=== PATIENT | female | born 1990 | race Caucasian/White ===

== ENCOUNTER → 2022-08-03 11:57 | Outpatient (CLI) | payer OTHER, SELFPAY ==
[2022-08-03 15:11] LABS: Urine N gonorrhoeae NOT DETECTED
[2022-08-03 15:53] LABS: Urine Chlamydia NOT DETECTED
== END ==
PROVIDERS: Visit Provider Obstetrics & Gynecology
DX: Z34.81 Encounter for supervision of other normal pregnancy, first trimester (principal); Z3A.10 10 weeks gestation of pregnancy
CPT/HCPCS: 87491; 87591

== ENCOUNTER → 2022-08-03 12:19 | Outpatient (CLI) | payer OTHER, SELFPAY ==
[2022-08-03 14:07] LABS: Add Manual Diff / Slide Review NO; Basophils Absolute Auto 0 /uL (0-100); Basophils Percent Auto 0.3 % (0-2); Eosinophils Absolute Auto 100 /uL (0-450); Eosinophils Percent Auto 2.1 % (2-4); Hematocrit 36.1 % (36-46); Hemoglobin 12.6 g/dL (12.0-16.0); Lymphocytes Absolute Auto 1900 /uL (1100-4500); Lymphocytes Percent Auto 33.4 % (25-40); Mean Corpuscular HGB Conc 34.8 % (30-36); Mean Corpuscular Hemoglobin 31.1 PG (26-34); Mean Corpuscular Volume 89.5 fL (80-100); Monocytes Absolute Auto 400 /uL (0-900); Monocytes Percent Auto 6.1 % (3-14); Neutrophils Absolute Auto 3400 /uL (1500-7000); Neutrophils Percent Auto 58.1 % (50-75); Platelet Count 256 X10^3/uL (150-400); Red Blood Cell Count 4.04 X10^6/uL (4.0-5.2); Red Cell Distribution Width 12.8 % (11.6-14.8); White Blood Cell Count 5.8 X10^3/uL (4.5-11.0)
[2022-08-03 21:38] LABS: Hepatitis B Surface Antigen NEGATIVE s/c (NEGATIVE); Rubella Antibody IgG 25.4 IU/mL (>15)
[2022-08-03 21:59] LABS: HIV 1 & 2 Ab/Ag 4th Gen Combo NEGATIVE (NEGATIVE); Hep C Virus Ab w/Reflex Quant NEGATIVE s/c (NEGATIVE)
[2022-08-04 09:38] LABS: Varicella IgG Antibody 697 index (Immune >165)
[2022-08-05 11:09] LABS: RPR Screen Non Reactive (Non Reactive)
== END ==
PROVIDERS: Referring Provider Obstetrics & Gynecology; Visit Provider Obstetrics & Gynecology
DX: Z34.81 Encounter for supervision of other normal pregnancy, first trimester (principal); Z3A.10 10 weeks gestation of pregnancy
CPT/HCPCS: 36415; 80055; 86787; 86803; 86850; 86900; 86901; 87086; 87389; 87491; 87591

== ENCOUNTER → 2022-09-28 08:54 | Outpatient (CLI) | payer OTHER, SELFPAY ==
[2022-09-30 20:59] LABS: AFP, Serum 31.2 ng/mL (.); Estriol, Free 1.16 ng/mL (.); Inhibin A, Dimeric 142.41 pg/mL (.); Inhibin A, MoM 0.99 (.); Maternal Ethnicity Caucasian (.); Maternal Weight 169 lbs (.); Number of Fetuses No (.); OSBR Risk 1 IN 10000 (.); Results Report (.); Test Results *Screen Negative* (.); hCG, MoM 1.92 (.); hCG, Serum 50936 mIU/mL (.)
== END ==
PROVIDERS: Referring Provider Obstetrics & Gynecology; Visit Provider Obstetrics & Gynecology
DX: Z34.82 Encounter for supervision of other normal pregnancy, second trimester (principal); Z3A.18 18 weeks gestation of pregnancy
CPT/HCPCS: 36415; 82105; 82677; 84702; 86336

== ENCOUNTER → 2022-10-12 10:14 | Outpatient (CLI) | payer OTHER, SELFPAY ==
--- NOTE | 2022-10-12 10:15 | DI.US.S_ITS ---
PROCEDURE: US OB >= 14 WEEKS FETUS INDICATIONS: ANATOMY OUTSIDE/PRIOR DATING DATA: Last menstrual period (LMP): 05/23/2022. LMP-based estimated date of delivery (RIANNA): 02/27/2023. (Working RIANNA) First dating scan (date and location): 08/03/2022. Estimated date of delivery (RIANNA) from first dating scan: 02/24/2023. TECHNIQUE: Real-time scanning was performed of the fetus, with image documentation and biometric measurements. COMPARISON: [facility], , OB <= 14 WEEKS FETUS, 08/03/2022, 12:05. FINDINGS: General: A single living intrauterine gestation is present. Presentation: Transverse. Placenta: Placental position is anterior. No previa. The inferior edge of the placenta is 2.9 centimeters from the cervix. Amniotic fluid index: 15.8 cm, normal range is 5-24 cm. Single deepest vertical pocket is 5.8 cm. heart rate: 150 beats per minute. Maternal cervical canal: 4.7 cm long. Normal lower limit is 2.5 cm. biometrics: Biparietal diameter: 5.1 centimeters, 21 weeks and 4 days Head circumference: 19 centimeters, 21 weeks and 2 days Abdominal circumference: 16.4 centimeters, 21 weeks and 3 days Femur length: 3.3 centimeters, 20 weeks and 2 days Clinically estimated gestational age: 20 weeks and 2 days Composite gestational age from present scan: 21 weeks and 1 day Estimated weight and percentile: 391 grams, 83rd percentile Anatomic survey: Neuro: Ventricles are non-dilated at less than 10 mm. Cisterna magna is normal at 3-11 mm. Cerebellum is normal in size and morphology. Nuchal skin fold: Normal at less than 6 mm between 14-21 weeks gestational age. Face: Nose and lips, facial profile are normal. Spine: No evidence for spina bifida. Heart: 4-chambered heart is present, with normal ventricular outflow tracts. Diaphragm: Diaphragm is intact. Stomach: Left-sided stomach is present. Kidneys: No hydronephrosis. Normal is less than 5 mm in 2nd trimester, less than 7 mm in 3rd trimester. Cord: 3-vessel cord has orthotopic insertion. Bladder: Normal in size. Extremities: All 4 extremities identified. IMPRESSION: Living intrauterine gestation at 20 weeks and 2 days. Biometry today is at the 83rd percentile. No significant abnormalities on routine anatomic survey. Dictated by: Srinivas Cohen M.D. on 10/12/2022 at 13:02 Approved by: Srinivas Cohen M.D. on 10/12/2022 at 13:08
== END ==
PROVIDERS: PCP Physician Assistant; Referring Provider Specialist; Visit Provider Specialist
DX: Z34.82 Encounter for supervision of other normal pregnancy, second trimester (principal); Z3A.20 20 weeks gestation of pregnancy
CPT/HCPCS: 76811

== ENCOUNTER → 2022-11-27 08:14 | Outpatient (CLI) | payer OTHER, SELFPAY ==
[2022-11-27 10:11] LABS: Hematocrit 34.3 % (36-46); Hemoglobin 11.8 g/dL (12.0-16.0)
[2022-11-27 10:25] LABS: GTT (PREG) 1 Hour PP 50gm Dose 108 mg/dL (76-139)
== END ==
PROVIDERS: PCP Physician Assistant; Referring Provider Obstetrics & Gynecology; Visit Provider Obstetrics & Gynecology
DX: Z34.82 Encounter for supervision of other normal pregnancy, second trimester (principal); Z3A.26 26 weeks gestation of pregnancy
CPT/HCPCS: 36415; 82950; 85014; 85018; 86850

== ENCOUNTER 2023-01-25 16:48 | Outpatient (CLI) | payer OTHER, SELFPAY | END 2023-01-25 17:40 | disposition home or self-care (01) | LOC: LABOR 17:13 → OB 02-01 06:50 | PROVIDERS: PCP Physician Assistant; Referring Provider Obstetrics & Gynecology; Visit Provider Obstetrics & Gynecology | DX: Z36.9 Encounter for antenatal screening, unspecified (principal) | CPT/HCPCS: 59025; G0378; G0379 ==

== ENCOUNTER → 2023-02-03 10:28 | Outpatient (CLI) | payer OTHER, SELFPAY ==
[2023-02-04 12:59] LABS: Strep Grp B PCR NEG for Grp B Strep
== END ==
PROVIDERS: PCP Physician Assistant; Visit Provider Obstetrics & Gynecology
DX: Z34.83 Encounter for supervision of other normal pregnancy, third trimester (principal); Z3A.36 36 weeks gestation of pregnancy
CPT/HCPCS: 87653

== ENCOUNTER → 2023-02-14 11:49 | Outpatient (CLI) | payer OTHER, SELFPAY | LOC: LAB 11:51 | PROVIDERS: PCP Physician Assistant; Referring Provider Specialist; Visit Provider Specialist | DX: Z34.83 Encounter for supervision of other normal pregnancy, third trimester (principal); Z3A.38 38 weeks gestation of pregnancy | CPT/HCPCS: 36415; 86850; 86870 ==

== ENCOUNTER 2023-02-20 18:03 | Observation (INO) | payer OTHER, SELFPAY ==
--- NOTE | 2023-02-20 19:55 | PM.OBTRLD ---
Visit Information Visit Information Date of evaluation: 02/20/23 Primary OB Provider: Briseyda Reis On-call OB Provider: Natasha Mahmood Reason for Evaluation: Yes rule out labor Comments/Additional reasons for admission: Patient is a 32 yo at 39 weeks today presenting for r/o labor. Enoch all day, closer in frequency. Q3min on arrival, still mild. No VB, LOF. Good FM. Vital Signs Vital Signs: See EMR [facility] Medical History (Updated 02/03/23 @ 10:29 by Emma Draper MD) Acne (~2002) Fractures Chicken pox (~1995) Painful menstrual periods (~2001) Heavy menstrual period (~2021) Kidney stones (~2016) Gluten enteropathy (~1991) GERD (gastroesophageal reflux disease) (~2020) Fibroadenoma of left breast IBS (irritable bowel syndrome) (~2018) Celiac disease/sprue Surgical History (Updated 07/26/22 @ 14:06 by Marion Winston) Anesthesia H/O endoscopy (~2009) History of tonsillectomy (~2000) History of cholecystectomy (~2009) Family History (Updated 07/26/22 @ 14:07 by Marion Winston) Mother Osteopenia Uterine fibroid Grandmother Dementia Grandfather Hypertension Hyperlipidemia TIA (transient ischemic attack) Cardiac arrest Diabetes mellitus Grandmother No problems noted. 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) occupational status: unemployed current occupational exposures/hazards: No shante/restorationism: Nondenominational special shante needs: No travel history: recent (domestic only) seatbelt use: always helmet use: Yes water heater temp set < 120 deg: Yes working smoke detector in home: Yes fire extinguisher in home: Yes carbon monox detector in home: Yes firearms in home: Yes firearms unloaded and locked: Yes do you feel safe at home: Yes Smoking Status: Never smoker second hand exposure: No alcohol intake: former (very rarely when not ) substance use type: does not use during the past year weight has: remained stable well-balanced diet: daily or most days daily servings fruits/ve-4 caffeine: No Type(s) of exercise: walking and other (physical play w/ son) Exam Narrative Exam Narrative: Cervical exam per RN 1-1.5/50/-3. Repeat check 2 hr later unchanged. Evaluation Evaluation Baseline heart rate: 150 Variability: Moderate (11-25) monitor accelerations: Present Monitor Decelerations: Absent Uterine Contraction Intensity: Mild Category of Tracing: Reactive Status: Category l Cervical dilation (cm): 1 Cervical effacement (%): 50 station: -3 Diagnosis, Plan/Disposition Plan/Disposition Plan: Patient is a 32 yo at 39 weeks today presenting for r/o labor. Serial exam unchanged. GBS negative. FHT category 1. Home with strict precautions. OB Disposition: home
== END 2023-02-20 21:05 | disposition home or self-care (01) ==
PROVIDERS: Admitting Provider Specialist; PCP Physician Assistant; Referring Provider Specialist; Visit Provider Specialist
DX: O47.1 False labor at or after 37 completed weeks of gestation (principal); Z3A.39 39 weeks gestation of pregnancy
CPT/HCPCS: 59025; G0378; G0379

== ENCOUNTER 2023-02-22 17:41 | Outpatient (CLI) | payer OTHER, SELFPAY | END 2023-02-22 18:37 | disposition home or self-care (01) | LOC: OB 02-24 08:03 | PROVIDERS: PCP Physician Assistant; Referring Provider Specialist; Visit Provider Specialist | DX: O47.1 False labor at or after 37 completed weeks of gestation (principal); Z3A.39 39 weeks gestation of pregnancy | CPT/HCPCS: 59025; G0378; G0379 ==

== ENCOUNTER 2023-02-25 18:23 | Outpatient (CLI) | payer OTHER, SELFPAY | END 2023-02-25 19:05 | disposition home or self-care (01) | LOC: OB 02-28 06:48 | PROVIDERS: PCP Physician Assistant; Referring Provider Family Medicine; Visit Provider Family Medicine | DX: Z03.71 Encounter for suspected problem with amniotic cavity and membrane ruled out (principal); Z3A.39 39 weeks gestation of pregnancy | CPT/HCPCS: 59025; 84112; G0378; G0379 ==

== ENCOUNTER 2023-02-28 11:07 | Outpatient (CLI) | payer OTHER, SELFPAY | END 2023-02-28 12:53 | disposition home or self-care (01) | LOC: LABOR 11:51 → OB 03-04 10:25 | PROVIDERS: PCP Physician Assistant; Referring Provider Specialist; Visit Provider Specialist | DX: Z03.71 Encounter for suspected problem with amniotic cavity and membrane ruled out (principal); Z3A.40 40 weeks gestation of pregnancy; O48.0 Post-term pregnancy | CPT/HCPCS: 59025; 84112; G0378; G0379 ==

== ENCOUNTER 2023-03-07 19:35 | Outpatient (CLI) | payer OTHER, SELFPAY ==
--- NOTE | 2023-03-07 20:06 | PM.OBTRLD ---
Visit Information Visit Information Date of evaluation: 03/07/23 On-call OB Provider: Briseyda Reis Reason for Evaluation: Yes non-stress test non-stress test reason: decreased movement Vital Signs Vital Signs: Blood pressure 108/63, pulse of 85 [facility] Medical History (Updated 03/07/23 @ 20:08 by Briseyda Reis MD) Acne (~2002) Fractures Chicken pox (~1995) Painful menstrual periods (~2001) Heavy menstrual period (~2021) Kidney stones (~2016) Gluten enteropathy (~1991) GERD (gastroesophageal reflux disease) (~2020) Fibroadenoma of left breast IBS (irritable bowel syndrome) (~2018) Celiac disease/sprue Surgical History (Updated 07/26/22 @ 14:06 by Marion Winston) Anesthesia H/O endoscopy (~2009) History of tonsillectomy (~2000) History of cholecystectomy (~2009) Family History (Updated 07/26/22 @ 14:07 by Marion Winston) Mother Osteopenia Uterine fibroid Grandmother Dementia Grandfather Hypertension Hyperlipidemia TIA (transient ischemic attack) Cardiac arrest Diabetes mellitus Grandmother No problems noted. Grandfather Emphysema lung Pneumonia Family/Other Bladder cancer Social History marital status: number of children: 1 household members: spouse and children lives independently: Yes caregiver/support person: Yes housing: house pets and animals: Yes education level: master's degree occupational status: unemployed current occupational exposures/hazards: No shante/christian: Mormonism special shante needs: No travel history: recent seatbelt use: always helmet use: Yes water heater temp set < 120 deg: Yes working smoke detector in home: Yes fire extinguisher in home: Yes carbon monox detector in home: Yes firearms in home: Yes firearms unloaded and locked: Yes do you feel safe at home: Yes Smoking Status: Never smoker second hand exposure: No alcohol intake: former substance use type: does not use during the past year weight has: remained stable well-balanced diet: daily or most days daily servings fruits/ve-4 caffeine: No Type(s) of exercise: walking and other Evaluation Evaluation Baseline heart rate: 150 Variability: Moderate (11-25) monitor accelerations: Present Monitor Decelerations: Absent Category of Tracing: Reactive Status: Category l Cervical dilation (cm): 4 Cervical effacement (%): 95 station: -1 Diagnosis, Plan/Disposition Final Diagnosis (1) 41 weeks gestation of : Status: Acute (2) Decreased movement: Status: Acute Plan/Disposition Plan: Patient was to undergo cervical ripening tonight however cervix is favorable. NST reactive. Patient will return in a.m. if unit is able to take her. OB Disposition: home
== END 2023-03-07 20:25 | disposition home or self-care (01) ==
LOC: OB 03-08 10:56
PROVIDERS: PCP Physician Assistant; Referring Provider Specialist; Visit Provider Specialist
DX: O36.8130 Decreased fetal movements, third trimester, not applicable or unspecified (principal); O48.0 Post-term pregnancy; Z3A.41 41 weeks gestation of pregnancy
CPT/HCPCS: 59025; G0378; G0379

== ENCOUNTER 2023-03-08 09:30 | Inpatient (IN) | payer OTHER, SELFPAY ==
[2023-03-08 09:45] VITALS: BP 122/64
[2023-03-08 10:47] LABS: Add Manual Diff / Slide Review NO; Basophils Absolute Auto 100 /uL (0-100); Basophils Percent Auto 0.5 % (0-2); Eosinophils Absolute Auto 100 /uL (0-450); Eosinophils Percent Auto 0.5 % (2-4); Hematocrit 36.6 % (36-46); Hemoglobin 12.6 g/dL (12.0-16.0); Lymphocytes Absolute Auto 2100 /uL (1100-4500); Lymphocytes Percent Auto 18.4 % (25-40); Mean Corpuscular HGB Conc 34.5 % (30-36); Mean Corpuscular Hemoglobin 31.3 PG (26-34); Mean Corpuscular Volume 90.5 fL (80-100); Monocytes Absolute Auto 700 /uL (0-900); Monocytes Percent Auto 6.2 % (3-14); Neutrophils Absolute Auto 8300 /uL (1500-7000); Neutrophils Percent Auto 74.4 % (50-75); Platelet Count 285 X10^3/uL (150-400); Red Blood Cell Count 4.04 X10^6/uL (4.0-5.2); Red Cell Distribution Width 13.3 % (11.6-14.8); White Blood Cell Count 11.2 X10^3/uL (4.5-11.0)
--- NOTE | 2023-03-08 11:36 | P.PCN_ITS ---
Regional Block Pre-procedure PMH/ROS narrative: requesting JOSIAH for labor pain PSH/Anesthesia history narrative: See pre-anesthesia evaluation ASA Class: II Labs: Hct 36.6 % (36-46) 03/08/23 10:15 Plt Count 285 X10^3/uL (150-400) 03/08/23 10:15 Medications: Current Medications Generic Name Dose Route Start Last Admin Trade Name Freq PRN Reason Stop Dose Admin Calcium Carbonate 1,000 mg 03/08/23 09:45 Calcium Carbonate 500 Mg Tab PO Q4HR PRN Dyspepsia Carboprost Tromethamine 250 mcg 03/08/23 09:45 Carboprost 250 Mcg/Ml Ampul IM Q90M PRN Bleeding Fentanyl 100 mcg 03/08/23 09:45 Fentanyl 100 Mcg/2 Ml Inj IV Q1H PRN Pain, Severe (7-10) Oxytocin/Lactated Ringer's 30 unit in 500 mls @ 2 mls/hr 03/08/23 09:45 Oxytocin Premix IV TITRATE DANIEL Protocol 2 MILLIUNIT/MIN Lactated Ringer's 1,000 mls @ 100 mls/hr 03/08/23 09:45 Lactated Ringers IV CONT DANIEL Oxytocin/Lactated Ringer's 30 unit in 500 mls @ 200 mls/hr 03/08/23 09:45 Oxytocin Premix IV CONT PRN Bleeding Protocol Tranexamic Acid 1,000 mg/ 100 mls @ 200 mls/hr 03/08/23 09:45 Sodium Chloride IV NOW PRN Bleeding Lidocaine HCl 20 ml 03/08/23 09:45 Lidocaine 1% 20 Ml INJ INTRA-OP PRN Post Delivery Methylergonovine Maleate 0.2 mg 03/08/23 09:45 Methylergonovine 0.2 Mg/Ml Vial IM NOW PRN Bleeding Methylergonovine Maleate 0.2 mg 03/08/23 09:45 Methylergonovine 0.2 Mg Tablet PO Q6HR PRN Heavy Bleeding Misoprostol 800 mcg 03/08/23 09:45 Misoprostol 200 Mcg Tablet HI NOW PRN Bleeding Misoprostol 400 mcg 03/08/23 09:45 Misoprostol 200 Mcg Tablet SL NOW PRN Bleeding Naloxone HCl 0.2 mg 03/08/23 09:45 Naloxone 0.4 Mg/Ml Vial IV Q2MIN PRN Opiate Reversal Ondansetron HCl 4 mg 03/08/23 09:45 Ondansetron 4 Mg/2 Ml Inj IV Q4HR PRN Nausea And Vomiting Oxytocin 10 unit 03/08/23 09:45 Oxytocin 10 Unit/Ml Vial IM NOW PRN Bleeding Allergies: Allergies Allergy/AdvReac Type Severity Reaction Status Date / Time wheat [WHEAT] Allergy Severe Celiac Unverified 03/01/23 13:09 codeine [CODEINE] AdvReac Intermediate Vomiting Unverified 03/01/23 13:09 Procedure Insertion date: 03/08/23 Insertion time: 11:13 Prep/Local: 1% lidocaine (Chlorhexadine to back. 3mL Lidocaine 1% for local) Interspace: L1/L2 Patient position: sitting Needle: 18 gauge Hustead Loss of resistance with: saline LUCIANA at (cm): 5 Catheter placed at SKIN (cm): 12 Catheter in SPACE (cm): 7 Sensory level: T10 Insertion: No CSF, No Blood, No Paresthesia with insertion, No Paresthesia with injection and No Test dose reaction Initial Medications TEST DOSE time: 11:15 TEST DOSE: 1.5% lidocaine with epinephrine 1:200k (mL): 3 BOLUS DOSE time: 11:18 BOLUS DOSE (mL): 2 BOLUS DOSE med: other (1.5% lidocaine with epinephrine 1:200k) Infusion INFUSION: 0.125% bupivacaine and with fentanyl 2 mcg/mL Initial rate (mL/hr): 8 Subsequent interventions: 1332 - Called to bedside for pt c/o feeling the sauceda catheter, however does not feel her contractions. Recommended repositioning to a more upright position, however patient is slightly nauseated with SBPs in the 100s. Epidural catheter bolus with 5mL 0.25% Bupivacaine. Ephedrine 20mg (10mg prior and 10mg post) given IV to prevent hypotension and nausea. 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
--- NOTE | 2023-03-08 13:02 | P.HPOB_ITS ---
OB HPI Date/Time Date of admission: 03/08/23 Date Patient Seen: 03/08/23 Time Patient Seen: 13:02 History of Present Condition Chief complaint: OBS : 3 Para: 1 Estimated Date of Delivery: 02/27/23 Estimated Gestational Age (weeks): 41+2 Narrative: Shelbie Hackett is a 32 year old admitted now at 41+ 2 weeks gestational age in early active phase labor. Patient's course has been largely uneventful with solid early dating and appropriate milestones throughout. Patient is Rh negative and received RhoGAM at 28 weeks. GBS testing is negative. Indications Indication for induction OB: post dates History of Present care: good care Dating criteria: LMP confirmed by 1st trimester US Ultrasounds: normal 1st trimester US and normal mid trimester US Obstetrical complications: none Medical complications: none Preadmission Labs Blood type: A (-) negative -: Antibody screen: negative, GBS status: negative, HBsAG: negative, HIV: negative and RPR/VDLR: negative -: Chlamydia screen: not detected and Gonorrhea screen: not detected -: Rubella: immune and Varicella: immune HCT: 36.6 HCAB: negative PAP: Normal Quad screen: Normal 1 hr GTT: 108 Prior (ies) History: x 1 Evaluation Evaluation Baseline heart rate: 145 Variability: Moderate (11-25) monitor accelerations: Present Monitor Decelerations: Absent and Late (Rare, non-recurrent, positional) Contraction Frequency (minutes): 3 Uterine Contraction Intensity: Moderate Category of Tracing: Reactive Status: Category ll Dilation (cm): 7 Effacement (%): 100 Dilation: >/=5 cm Effacement: >/=80% station: -1 Position of cervix: mid Consistency: soft Reece score: 11 [facility] Medical History (Updated 03/07/23 @ 20:08 by Briseyda Reis MD) Acne (~2002) Fractures Chicken pox (~1995) Painful menstrual periods (~2001) Heavy menstrual period (~2021) Kidney stones (~2016) Gluten enteropathy (~1991) GERD (gastroesophageal reflux disease) (~2020) Fibroadenoma of left breast IBS (irritable bowel syndrome) (~2018) Celiac disease/sprue Surgical History (Updated 07/26/22 @ 14:06 by Marion Winston) Anesthesia H/O endoscopy (~2009) History of tonsillectomy (~2000) History of cholecystectomy (~2009) Family History (Updated 07/26/22 @ 14:07 by Marion Winston) Mother Osteopenia Uterine fibroid Grandmother Dementia Grandfather Hypertension Hyperlipidemia TIA (transient ischemic attack) Cardiac arrest Diabetes mellitus Grandmother No problems noted. Grandfather Emphysema lung Pneumonia Family/Other Bladder cancer Social History marital status: number of children: 1 household members: spouse and children lives independently: Yes caregiver/support person: Yes housing: house pets and animals: Yes education level: master's degree occupational status: unemployed current occupational exposures/hazards: No shante/judaism: Sabianism special shante needs: No travel history: recent seatbelt use: always helmet use: Yes water heater temp set < 120 deg: Yes working smoke detector in home: Yes fire extinguisher in home: Yes carbon monox detector in home: Yes firearms in home: Yes firearms unloaded and locked: Yes do you feel safe at home: Yes Smoking Status: Never smoker second hand exposure: No alcohol intake: former substance use type: does not use during the past year weight has: remained stable well-balanced diet: daily or most days daily servings fruits/ve-4 caffeine: No Type(s) of exercise: walking and other Meds Home Medications and Allergies Home Medications Medication Instructions Recorded Confirmed Type prenat.vits,sunita,iqi-vpbv-vlaaf 1 tab PO DAILY 07/20/22 03/08/23 History ondansetron 4 mg disintegrating 4 mg PO Q8H PRN nausea and 10/26/22 03/08/23 Rx tablet vomiting #30 tabs pantoprazole 40 mg tablet,delayed 40 mg PO DAILY #30 tabs 10/26/22 03/08/23 Rx release (Protonix) Allergies Allergy/AdvReac Type Severity Reaction Status Date / Time wheat [WHEAT] Allergy Severe Celiac Unverified 03/01/23 13:09 codeine [CODEINE] AdvReac Intermediate Vomiting Unverified 03/01/23 13:09 OB Exam Vital signs Blood Pressure: 121/75 Pulse Rate: 99 Temperature: 97.3 F HENMT Head: normal to inspection, normocephalic and atraumatic Eyes General: appearance normal, both eyes and all related structures Resp Effort & Inspection: normal respiratory effort and able to speak in complete sentences Auscultation: clear to auscultation bilaterally Cardio Rate: regular rate Rhythm: regular rhythm Heart Sounds: S1 normal, S2 normal and no murmurs Extremities Lower extremity: Yes normal to inspection GI Inspection: normal to inspection Palpation: Yes soft and Yes no hepatosplenomegaly Uterus Location (Fundal Height): 37 Presentation: vertex Estimated Weight (lbs): 8 Amniotic Fluid: meconium (Very very light meconium staining) Other: AROM 1302 Objective Labs 03/08/23 10:15 Labs: Laboratory Results - last 24 hr 03/08/23 10:15 WBC 11.2 H RBC 4.04 Hgb 12.6 Hct 36.6 MCV 90.5 MCH 31.3 MCHC 34.5 RDW 13.3 Plt Count 285 Neut % (Auto) 74.4 Lymph % (Auto) 18.4 L [place] % (Auto) 6.2 Eos % (Auto) 0.5 L Baso % (Auto) 0.5 Neut # (Auto) 8300 H Lymph # (Auto) 2100 [place] # (Auto) 700 Eos # (Auto) 100 Baso # (Auto) 100 Blood Type O Negative Antibody Screen Positive Antibody Identification Anti-D Assessment and Plan Assessment and Plan Assessment and Plan narrative: ASSESSMENT 1. Intrauterine , 40+2 wks EGA 2. Rh negative status 3. GBS negative status PLAN 1. Admit for delivery
[2023-03-08 13:16] VITALS: BP 121/75; PULSE 99; TEMP 36.3
--- NOTE | 2023-03-08 16:07 | P.PCNOB_ITS ---
Labor & Delivery Delivery date: 03/08/23 Intrapartal Events: None Cervical ripening method: none Induction method: none Delivery augmentation: rupture of membranes Delivery monitor: external FHT and external uterine Route of delivery: Episiotomy description: None L&D Laceration Description: None Estimated blood loss (mL): 150 Anesthesia Type: Epidural Complications: None Narrative: Following a 56 minute 2nd stage, during which the rotated slowly from LOP to direct OA, the patient delivered spontaneously over an intact perineum a viable female with Apgars of 9/9, weight 3963 g (8 lb 11.8 oz). T he vertex and shoulders delivered without difficulty and a tight nuchal cord was noted which was reduced after delivery of the infant. Skin to skin contact was initiated immediately and delayed cord clamping performed. Once the umbilical cord was doubly clamped and cut, a cord blood sample was obtained for routine studies. The placenta itself was then delivered easily with gentle cord traction and suprapubic countertraction. Intravenous Pitocin was initiated immediately after delivery of the placenta and post delivery blood loss was quickly brought under control. Inspection of the placenta showed it to be intact with centrally inserting three-vessel umbilical cord. Inspection of the perineum showed no abrasions or lacerations. Sponge, instrument, and needle counts were correct at the end of the procedure which was well tolerated by both mother and infant. [place] Baby 1: gender: Female Presentation: vertex Position: Left Occiput Anterior Placenta delivery description: Spontaneous Cord Vessel Description: 3 Vessels score (1 min): 9 score (5 min): 9 weight: 8 lb 11.791 oz Plan for aftercare: Routine care
[2023-03-09] MEDS: ACETAMINOPHEN 325 MG TABLET 650 MG PO (00:55)
[2023-03-09] MEDS: IBUPROFEN 600 MG TABLET PO (00:55)
[2023-03-09] MEDS: LANOLIN OINT 7 GM 1 APPLIC TOP (00:55)
[2023-03-09] MEDS: RHO(D) IMMUNE GLOBULIN 1,500 UNIT SYRINGE 1500 UNIT IM (00:55)
[2023-03-09 05:58] LABS: Add Manual Diff / Slide Review NO; Basophils Absolute Auto 100 /uL (0-100); Basophils Percent Auto 0.9 % (0-2); Eosinophils Absolute Auto 100 /uL (0-450); Eosinophils Percent Auto 0.8 % (2-4); Hematocrit 34.2 % (36-46); Hemoglobin 11.7 g/dL (12.0-16.0); Lymphocytes Absolute Auto 2600 /uL (1100-4500); Mean Corpuscular HGB Conc 34.2 % (30-36); Mean Corpuscular Hemoglobin 31.1 PG (26-34); Monocytes Absolute Auto 1000 /uL (0-900); Monocytes Percent Auto 7.4 % (3-14); Neutrophils Absolute Auto 9800 /uL (1500-7000); Neutrophils Percent Auto 71.9 % (50-75); Platelet Count 239 X10^3/uL (150-400); Red Blood Cell Count 3.76 X10^6/uL (4.0-5.2); Red Cell Distribution Width 13.2 % (11.6-14.8); White Blood Cell Count 13.7 X10^3/uL (4.5-11.0)
--- NOTE | 2023-03-09 08:29 | PM.OBDS.1 ---
Discharge Providers Provider Date of admission: 03/08/23 09:30 Discharge Date: 03/09/23 Primary care physician: Natasha Márquez PA-C Consults: 03/08/23 09:45 Consult to Anesthesiology Urgent Comment: Consulting Provider: Anesthesiologist Reason for consultation: Epidural Has provider been notified: Yes 03/09/23 16:[address] [employer] Routine Comment: Discharge provider: Raphael Ashford MD Summary Hospital Course Date Patient Seen: 03/09/23 Time Patient Seen: 08:30 Diagnoses: Intrauterine gestation, 40+ 2 weeks gestational age, delivered by spontaneous vaginal GBS negative status Rh-negative status Hospital Course: Shelbie was admitted on the morning of 03/08/2023 in early active phase labor. After epidural was placed, AROM performed and patient progressed well in spontaneous labor. Early on the afternoon of 03/08/2023 the patient delivered spontaneously a viable female with Apgars of 9/9, weight 3963 g (8 lb 11.8 oz). Following delivery both mother and infant have done extremely well with the mother experiencing prompt return of bowel and bladder function, she is ambulating independently, tolerating a regular diet, and her pain is well controlled with oral pain medications. She will be discharged at this time to home in an afebrile normotensive condition after counseling regarding precautionary symptoms, limitations activity, medications, and plans for follow-up which will be in 6 weeks. Medications at discharge will include resumption of all pre-admission medications and she will use [id number] Tylenol and/or ibuprofen for pain relief. Peripartum Data Delivery Method: Natural Vaginal Laceration Description: None Episiotomy description: None Procedures: Continuous lumbar epidural Spontaneous vaginal complications: none 1: Gender: Female Disposition of : home Status at Discharge Cognitive/behavioral status at discharge: oriented Functional status at discharge: independent ambulation Overall status at discharge: patient is progressing back to baseline Time Spent with Patient Time attestation: Total time spent providing and/or coordinating discharge services: Time spent: Less than 30 minutes Objective Labs 03/09/23 05:42 Labs: Laboratory Results - last 24 hr 03/08/23 03/09/23 10:15 05:42 WBC 11.2 H 13.7 H RBC 4.04 3.76 L Hgb 12.6 11.7 L Hct 36.6 34.2 L MCV 90.5 91.0 MCH 31.3 31.1 MCHC 34.5 34.2 RDW 13.3 13.2 Plt Count 285 239 Neut % (Auto) 74.4 71.9 Lymph % (Auto) 18.4 L 19.0 L [place] % (Auto) 6.2 7.4 Eos % (Auto) 0.5 L 0.8 L Baso % (Auto) 0.5 0.9 Neut # (Auto) 8300 H 9800 H Lymph # (Auto) 2100 2600 [place] # (Auto) 700 1000 H Eos # (Auto) 100 100 Baso # (Auto) 100 100 Blood Type O Negative Antibody Screen Positive Antibody Identification Anti-D Exam Const General: cooperative and comfortable Nutritional Appearance: average body habitus Orientation: alert and oriented x3 HENMT Head: normal to inspection, atraumatic and abrasion Ears: hearing grossly normal bilaterally Face and sinus: face symmetric Eyes General: appearance normal, both eyes and all related structures Conjunctivae: conjunctivae normal Sclera: sclerae normal EOM: EOM intact bilaterally Neck Neck: normal visual inspection Resp Effort & Inspection: normal respiratory effort and able to speak in complete sentences GI Inspection: normal to inspection Palpation: soft and no hepatosplenomegaly External Female Exam: other (No significant bleeding noted) Extrem General: no calf tenderness Psych Appearance: grossly normal Mental Status: mental status grossly normal Speech and Movement: speech and movement normal Mood: congruent mood Affect: normal affect Attitude: cooperative Thought Process: normal Thought Content: normal Judgment: judgment good Discharge Plan Discharge Plan Patient Disposition: Home Provider Discharge Comment: Please review the written instructions you received when you were discharged from the hospital. Your follow-up appointment is scheduled for 6 weeks after delivery and I look forward to seeing you then. If however in the meanwhile you have any issues, concerns, or problems, please contact the office via the phone number at [phone], or via the patient portal Discharge orders & Medications Prescriptions: Continued prenat.vits,sunita,uze-clft-lrwso Tablet 1 tab PO DAILY pantoprazole [Protonix] 40 mg tablet,delayed release (DR/EC) 40 mg PO DAILY Qty: 30 3RF ondansetron 4 mg tablet,disintegrating 4 mg PO Q8H PRN (Reason: nausea and vomiting) Qty: 30 1RF Follow up/Referrals: Natasha Márquez PA-C [Primary Care Provider] - Raphael Ashford MD [Physician] - Discharge Health Status Multidrug resistant organism: No MDRO Diet/Activity/Treatments Diet: Diet as Tolerated Activity: As tolerated Other treatments: [id number] Tylenol and/or ibuprofen may be used for pain relief. Eqji-rsv-utbipna stool softener and/or MiraLax may be used as needed constipation. Skin/Wound/Dressing Care Dressing: N/A Visit Report/Discharge Packet Instructions: DI for Labor and Delivery, Vaginal , DI for and Nipple Soreness Discharge Data Primary Care Provider: Natasha Márquez
[2023-03-09] MEDS: DOCUSATE 100 MG CAPSULE PO (09:53)
[2023-03-09] MEDS: DERMOPLAST SPRAY 20% 60 ML 1 SPRAY TOP (14:42)
== END 2023-03-09 15:25 | disposition home or self-care (01) | DRG 807 ==
PROVIDERS: Specialist; Admitting Provider Obstetrics & Gynecology; PCP Physician Assistant; Referring Provider Obstetrics & Gynecology; Visit Provider Obstetrics & Gynecology
DX: O48.0 Post-term pregnancy (principal); Z37.0 Single live birth; Z3A.41 41 weeks gestation of pregnancy; Z67.11 Type A blood, Rh negative
CPT/HCPCS: 36415; 59025; 59050; 59400; 59409; 85025; 86850; 86870; 86900; 86901; G0379; J2790

== ENCOUNTER → 2023-04-29 13:34 | Outpatient (CLI) | payer OTHER, SELFPAY ==
--- NOTE | 2023-04-29 13:35 | DI.US.S_ITS ---
PROCEDURE: US THYROID INDICATIONS: ENLARGED THYROID TECHNIQUE: Real-time scanning was performed of the thyroid gland, with image documentation. COMPARISON: None. FINDINGS: Thyroid: Right lobe measures 4.4 x 1.5 by II 0.0 cm. Left lobe measures 4.6 x 1.6 by cm. Isthmus is 0.37 cm thick. Echotexture is homogeneous. No discrete thyroid nodule. No neck soft tissue lymphadenopathy. IMPRESSION: Normal appearing thyroid gland. No thyroid nodule or neck soft tissue lymphadenopathy. ACR TI-RADS definitions and recommendations: TI-RADS 1 (benign): 0 points. FNA not needed. TI-RADS 2 (not suspicious): 2 points. FNA not needed. TI-RADS 3 (mildly suspicious): 3 points. * FNA if 2.5 cm or larger, follow up if 1.5 cm or larger (at 1, 3, and 5 years). TI-RADS 4 (moderately suspicious): 4-6 points. * FNA if 1.5 cm or larger, follow up if 1 cm or larger (at 1, 2, 3, and 5 years). TI-RADS 5 (highly suspicious): 7 points or more. * FNA if 1 cm or larger, follow up if 0.5 cm or larger (every year for 5 years). Dictated by: Senthil Gayle M.D. on 04/29/2023 at 15:35 Approved by: Senthil Gayle M.D. on 04/29/2023 at 15:42
[2023-04-29 15:13] LABS: Free T4, Direct Thyroxine 1.22 ng/dL (0.78-2.19)
[2023-04-29 15:27] LABS: Thyroid Stimulating Hormone 0.641 uIU/mL (0.47-4.68)
== END ==
PROVIDERS: PCP Physician Assistant; Referring Provider Obstetrics & Gynecology; Visit Provider Obstetrics & Gynecology
DX: E04.9 Nontoxic goiter, unspecified (principal)
CPT/HCPCS: 36415; 76536; 84439; 84443